=== PATIENT | male | born 1985 | race Hispanic/Latino ===

== ENCOUNTER 2019-12-27 21:07 | Emergency (ER) | payer OTHER ==
[2019-12-27] MEDS ORDERED: Fluorescein Opthalmic Strip ONE (21:40)
[2019-12-27] MEDS ORDERED: Proparacaine 0.5% Opth 15 ML BOT ONE (21:40)
== END 2019-12-27 22:45 | disposition home or self-care (01) ==
LOC: ERS 21:07
DX: T15.01XA Foreign body in cornea, right eye, initial encounter (principal); X58.XXXA Exposure to other specified factors, initial encounter
CPT/HCPCS: 99283

== ENCOUNTER 2020-05-19 20:12 | Emergency (ER) | payer OTHER | END 2020-05-19 22:11 | disposition home or self-care (01) | LOC: ERS 20:12 | DX: R51.9 Headache, unspecified (principal); R11.10 Vomiting, unspecified | CPT/HCPCS: 99283 ==

== ENCOUNTER 2020-06-03 14:10 | Emergency (ER) | payer OTHER ==
[2020-06-03] MEDS ORDERED: Ketorolac Tromethamine 30 MG/ML VIAL ONE (15:19)
== END 2020-06-03 15:43 | disposition home or self-care (01) ==
LOC: ERS 14:10
DX: S16.1XXA Strain of muscle, fascia and tendon at neck level, initial encounter (principal); F17.210 Nicotine dependence, cigarettes, uncomplicated; X50.9XXA Other and unspecified overexertion or strenuous movements or postures, initial encounter
CPT/HCPCS: 96372; J1885